=== PATIENT | female | born 1995 | race Two or more races ===

== ENCOUNTER 2018-06-11 19:07 | Emergency (ER) | payer SELFPAY ==
[~2018-06-11] VITALS: Ht 167.6 cm; Wt 110.7 kg
[2018-06-11 19:40] VITALS: BP 123/74
[2018-06-11 20:16] LABS: Urine Bacteria NONE SEEN /hpf (None Seen); Urine Blood Negative /uL (Negative); Urine Mucus FEW (None Seen); Urine Specific Gravity 1.028 (1.001-1.035); Urine WBC 4 /hpf (0 - 5)
== END 2018-06-11 21:35 | disposition home or self-care (01) ==
LOC: ER 19:23
DX: R51 Headache (principal); R11.2 Nausea with vomiting, unspecified
CPT/HCPCS: 81001; 81025; 82962

== ENCOUNTER 2018-09-01 12:10 | Emergency (ER) | payer BC, OTHER ==
[~2018-09-01] VITALS: Ht 167.6 cm; Wt 111.1 kg
[2018-09-01] MEDS ORDERED: KETOROLAC TROMETH 60MG/2ML VIAL IM ONE (15:30)
[2018-09-01] MEDS ORDERED: METHOCARBAMOL 500 MG TAB PO ONE (15:30)
[2018-09-01 15:57] VITALS: BP 110/76
== END 2018-09-01 16:22 | disposition home or self-care (01) ==
LOC: ER 12:14
DX: S13.4XXA Sprain of ligaments of cervical spine, initial encounter (principal); V43.52XA Car driver injured in collision with other type car in traffic accident, initial encounter; Y93.89 Activity, other specified; Y99.8 Other external cause status; Y92.410 Unspecified street and highway as the place of occurrence of the external cause
CPT/HCPCS: 70450; 70486; 72125; 96372; 99284; J1885